=== PATIENT | male | born 1960 | race Hispanic/Latino ===

== ENCOUNTER 2017-04-16 11:07 | Emergency (ER) | payer SELFPAY ==
[2017-04-16 11:18] LABS: Basophils % (Auto) 0.2 % (0.0-1.8); Eosinophils % (Auto) 0.1 % (0.0-4.3); Hematocrit 39.1 % (35.5-45.6); Hemoglobin 13.1 gm/dl (11.8-15.2); Mean Corpuscular HGB Conc 34 % (32-34); Mean Corpuscular Hemoglobin 29 pg (28-32); Mean Corpuscular Volume 86 fl (84-94); Platelet Count 279 K/mm3 (140-440); Red Blood Count 4.54 M/mm3 (3.65-5.03); Red Cell Distribution Width 14.9 % (13.2-15.2); White Blood Count 11.5 K/mm3 (4.5-11.0)
[2017-04-16] MEDS ORDERED: AMIDATE IV ONE ×2 (11:20→13:32)
[2017-04-16] MEDS ORDERED: ZEMURON IV ONE ×2 (11:20→13:33)
[2017-04-16] MEDS ORDERED: ARTIFICIAL TEARS OPHTH OINT OU PRN (11:29)
[2017-04-16] MEDS ORDERED: VASELINE LIP THERAPY TP PRN (11:29)
[2017-04-16 11:30] LABS: INR 1.04 (0.87-1.13); Partial Thromboplastin Time 26.4 Sec. (24.2-36.6)
[2017-04-16 11:34] LABS: Anion Gap 20 mmol/L; Blood Urea Nitrogen 18 mg/dL (9-20); Calcium 8.8 mg/dL (8.4-10.2); Carbon Dioxide 22 mmol/L (22-30); Chloride 100.8 mmol/L (98-107); Glucose 193 mg/dL (75-100); Potassium 4.1 mmol/L (3.6-5.0); Sodium 139 mmol/L (137-145)
--- NOTE | 2017-04-16 11:35 | Emergency Department Report ---
HPI - General Time Seen by Provider: 04/16/17 11:10 - HPI HPI: 57-year-old male presents to the emergency department via EMS from home with a unresponsive episode. The patient was last seen well or normal around 10:15 AM by his . He then became unresponsive and EMS was called. Apparently the is a poor historian regarding his medical conditions so it is unknown what his normal baseline mental status is. The patient did receive some Narcan in route and there was some improvement but not resolution of his symptoms. He became slightly more awake but still had slurred speech and what appears to be right-sided deficits. Patient is unable to give a good history secondary to his current medical condition. ED Review of Systems ROS: Stated complaint: POSS STROKE Other details as noted in HPI Comment: Unobtainable due to pts medical conditions Physical Exam - Physical Exam Physical Exam: GENERAL: Patient is ill appearing. HENT: Normocephalic. Atraumatic. Patient has moist mucous membranes. EYES: Extraocular motions are intact. Pupils pinpoint but equal reactive to light bilaterally. NECK: Supple. Trachea is midline. CHEST/LUNGS: Slightly coarse breath sounds. No tachypnea or accessory muscle use. There is no respiratory distress noted. HEART/CARDIOVASCULAR: Regular. There is no tachycardia. There is no gallop rub or murmur. ABDOMEN: Abdomen is soft, nontender. Patient has normal bowel sounds. There is no abdominal distention. SKIN: Skin is warm and dry. NEURO: The patient is awake but ill appearing. There is slurred speech but is incoherent. There does not appear to be any left upper or lower extremity drift or weakness. However there appears to be right sided hemiparesis. The patient is able to nod his head to answer some questions and there does not appear to be any sensory deficits. MUSCULOSKELETAL: There is no tenderness or deformity. There is no evidence of acute injury. ED Course - Reevaluation(s) Reevaluation #1: Family came bedside and gave some more information and has been updated about intubation, hemorrhagic CVA and now transferred to [facility] for neurosurgical services. 04/16/17 11:59 - Consultations Consultation #1: [facility] has been contacted regarding possible transfer regarding his hemorrhagic CVA. 04/16/17 11:34 04/16/17 11:41 [facility] does not have any neuro ICU beds available and cannot accept the transfer. Attempting to contact [facility]. 04/16/17 11:59 The patient has been accepted for transfer to [facility] by Dr. Juan Carlos Bass. Helicopter has been called. - ABG Interpretation Ph: [phone] PCO2: 38 PO2: 114 Bicarbonate: 25 Interpretation: normal - Intubation Time Out Performed: Yes Sedative: Etomidate Mg Given: 20 Paralytic: Rocuronium Mg Given: 100 Laryngoscope: fiberoptic video scope Size: 4 ET Tube Size: 7.5 Tube Secured Depth (cm): 24 Tube Secured Location: lips Tube Placement Confirmation: visualized tube passing t, equal breath sounds bilat, confirmation by capnometr Patient Tolerated Procedure: well Intubation Complications: none ED Medical Decision Making - Lab Data Result diagrams: 04/16/17 11:10 04/16/17 11:10 - Radiology Data Radiology results: report reviewed, image reviewed interpreted by me: Chest x-ray does not show any acute process. There are no pleural effusions, obvious pneumonia and there is no pneumothorax. The ET tube in appropriate position. CT scan of head without IV contrast: History: Neurodeficit Findings: Ventricles are midline in location. There is intracerebral parenchymal hematoma noted at left basal ganglia measuring 2.2 x 1.5 cm in diameter. Minimal surrounding edema. Also noted intraventricular hemorrhage including lateral ventricles, third and fourth ventricle. No evidence of subarachnoid hemorrhage or extra-axial fluid collection. Focal ill-defined area of low attenuation right basal ganglia could be acute/subacute or chronic ischemia. No previous studies available. Normal sinuses and mastoid air cells. Impression: Intracerebral left basal ganglia hematoma with intraventricular hemorrhage. Suspected ischemia right basal ganglia. Dr. Janette Rossi was informed of the findings at 11:25 AM on 04/16/17. CodePurple. Transcribed By: PTP Dictated By: AUBREY BRAVO MD Electronically Authenticated By: AUBREY BRAVO MD Signed Date/Time: 04/16/17 1129 - Medical Decision Making 57-year-old male presents to the emergency department after he had some altered mental status and what appears to be a stroke. Eventually the came to the emergency department and says that the patient was sleeping more than usual throughout the morning but continually telling her to go away and not to call for any ambulance or for any assistance. Eventually he got so obtunded that she called 911 anyway which is what brought him in to be seen. He was evaluated upon arrival and did not appear to have any respiratory distress at that time. However he began having some trouble with his secretions and emesis and had some transient snoring respirations and the decision was made to intubate him for protection of airway. This was done without any significant complications. CT of the head shows a right basal ganglia hematoma with intraventricular bleed. Patient has severely elevated blood pressure. He was started on nicardipine. Eventually I was able to get acceptance at [facility] and the patient was flown there. Labs are mostly unremarkable and did not show any etiology of his symptoms or condition. Family was updated along the way. - Differential Diagnosis ischemic CVA, hemorrhagic CVA, hypertensive crisis, polysubstance abuse Critical Care Time: Yes Critical care time in (mins) excluding proc time.: 40 Critical care attestation.: If time is entered above; I have spent that time in minutes in the direct care of this critically ill patient, excluding procedure time. Critical care time was spent on this patient and doing his initial evaluation, multiple re- evaluations, titration of nicardipine, ordering and evaluation of labs, interpretation of imaging, discussion with the radiologist, discussion with the family, discussion with neurosurgery at the accepting facility. This does not include the time spent doing intubation procedure. Critical Care Time: 40 minutes ED Disposition Clinical Impression: Hemorrhagic cerebrovascular accident (CVA), Hypertensive crisis Disposition: DC/TX-70 ANOTHER TYPE HLTHCARE Is pt being admited?: No Does the pt Need Aspirin: No Condition: Serious Referrals: PRIMARY CARE, [Primary Care Provider] - 3-5 Days Time of Disposition: 13:37
[2017-04-16 11:47] LABS: Alanine Aminotransferase 18 units/L (7-56); Alkaline Phosphatase 87 units/L (35-129)
[2017-04-16 11:53] LABS: Bilirubin,Direct < 0.2 mg/dL (0-0.2)
[2017-04-16] MEDS ORDERED: CARDENE 50 MG in NACL 0.9% 250ML 230 ML IV SCH (12:00)
[2017-04-16] MEDS ORDERED: MIDAZOLAM 100 MG in NACL 0.9% 80 ML IV SCH (12:00)
[2017-04-16] MEDS ORDERED: fentaNYL DRIP Premix 2,000 MCG/100 ML BAG IV SCH (12:00)
[2017-04-16 12:29] LABS: ISTAT Base Excess 1; ISTAT HCO3 25.5; ISTAT PCO2 38.6 (35-45); ISTAT PH 7.429 (7.35-7.45); ISTAT PO2 114 (80-105); ISTAT SO2 99; ISTAT TCO2 27
[2017-04-16] MEDS ORDERED: NACL 0.9% 1000 ML 1,000 ML ONE (12:38)
[2017-04-16 12:43] VITALS: BP 116/69
--- NOTE | 2017-04-16 13:06 | XRay Report ---
Portable chest: Tube placement. An endotracheal tube is in good position. The lungs are clear and the mediastinal contour is unremarkable. No prior studies for comparison. Impression: Well-positioned ET tube.
[2017-04-16] MEDS ORDERED: NACL 0.9% 250ML 250 ML IV ONE (13:32)
== END 2017-04-16 13:05 | disposition other institution (70) ==
LOC: ED 11:07
DX: I62.9 Nontraumatic intracranial hemorrhage, unspecified (principal); I16.9 Hypertensive crisis, unspecified
CPT/HCPCS: 31500; 36415; 70450; 71010; 80048; 80074; 82803; 84443; 84484; 85025; 85610; 85670; 85730; 87070; 87205; 93005; 93010; 94002; 96365; 96368; 99291; G0480; J3010; J7030; J7050; 80320; J2250

== ENCOUNTER 2018-03-05 23:01 | Emergency (ER) | payer MEDICAID ==
[~2018-03-05 23:01] MED LIST: ADRENALIN ONE; SODIUM BICARBONATE IV ONE
--- NOTE | 2018-03-05 23:16 | Emergency Department Report ---
ED CPR HPI - General Stated Complaint: CARDIAC ARREST Time Seen by Provider: 03/05/18 23:01 Source: EMS Limitations: Physical Limitation, Other (clinical situation) - History of Present Illness Initial Comments: per EMS: Patient is at his long-term and was down for approximately 5 minutes. CPR was initiated by long-term staff. Patient was intubated by EMS and started a right tibial IO. No ACLS drugs have been given in route MD Complaint: found unresponsive Place: NH/SNF Bystander CPR Performed: Yes AED Applied by Bystander/Refrigeration Brazer/Solderer: Yes Shock Advised: No Initial Findings in the Field: unresponsive, no respirations, no pulse ROSC in the Field: No Associated Injuries: No Treatments Prior to Arrival: intubation, other (IO) - Related Data Allergies Allergy/AdvReac Type Severity Reaction Status Date / Time Unable to Assess Allergy Verified 04/16/17 11:08 ED Review of Systems ROS: Stated complaint: CARDIAC ARREST Other details as noted in HPI Comment: Unobtainable due to pts medical conditions ED Past Medical Hx - Past Medical History Previous Medical History?: Yes Hx Hypertension: Yes Hx CVA: Yes Hx Diabetes: Yes - Surgical History Past Surgical History?: Yes - Family History Family history: no significant - Social History Smoking Status: Unknown if ever smoked Substance Use Type: None ED Physical Exam - General Limitations: Physical Limitation, Other (clinical situation) - Head Head exam: Present: atraumatic, normocephalic - Eye Eye exam: Present: other (pupils fixed) - Respiratory Respiratory exam: Present: other (patient is intubated by EMS. bilateral breath sounds noted. No epigastric sounds noted.) - GI/Abdominal GI/Abdominal exam: Present: soft. Absent: distended - Skin Skin exam: Present: warm, dry ED Course - Reevaluation(s) Reevaluation #1: Patient arrived in full cardiac arrest. See code note. code ran In accordance with ACLS protocol. Patient asystole on the monitor and no pulse noted 03/05/18 22:55 Reevaluation #2: Patient remained asystole on the monitor and no pulse noted. No cardiac activity noted. time of 23:03 .. . 03/05/18 2303 ED Medical Decision Making - Medical Decision Making Patient is a 58-year-old mother came into full cardiac arrest. Code was ran in accordance with ACLS protocol. Discussed case with family and family support given - Differential Diagnosis cardiac arrest Critical Care Time: Yes Critical care attestation.: If time is entered above; I have spent that time in minutes in the direct care of this critically ill patient, excluding procedure time. Critical Care Time: 15 minutes for cc time ED Disposition Clinical Impression: Cardiac arrest Disposition: DC-20 Is pt being admited?: No Does the pt Need Aspirin: No Condition: Serious Time of Disposition: 23:05
== END 2018-03-06 02:50 ==
LOC: ED 23:01
DX: I46.9 Cardiac arrest, cause unspecified (principal); I10 Essential (primary) hypertension; E11.9 Type 2 diabetes mellitus without complications; Z86.73 Personal history of transient ischemic attack (TIA), and cerebral infarction without residual deficits
CPT/HCPCS: 99285; J0171